=== PATIENT | female | born 1995 | race Two or more races ===

== ENCOUNTER → 2016-07-03 | Outpatient (CLI) | payer MEDICAID | LOC: FIMAGING 07:02 | PROVIDERS: ATTEND Physician Assistant | DX: Z34.92 Encounter for supervision of normal pregnancy, unspecified, second trimester (principal); Z3A.22 22 weeks gestation of pregnancy ==

== ENCOUNTER → 2016-09-11 | Outpatient (CLI) | payer MEDICAID | LOC: FIMAGING 07:47 | PROVIDERS: ATTEND Physician Assistant | DX: O36.5930 Maternal care for other known or suspected poor fetal growth, third trimester, not applicable or unspecified (principal); Z3A.32 32 weeks gestation of pregnancy ==

== ENCOUNTER → 2016-09-18 | Outpatient (CLI) | payer MEDICAID | LOC: FIMAGING 09:53 | PROVIDERS: ATTEND Physician Assistant | DX: O36.5931 Maternal care for other known or suspected poor fetal growth, third trimester, fetus 1 (principal); Z3A.33 33 weeks gestation of pregnancy ==

== ENCOUNTER → 2016-10-04 | Outpatient (CLI) | payer MEDICAID | LOC: FIMAGING 08:29 | PROVIDERS: ATTEND Physician Assistant | DX: O36.5931 Maternal care for other known or suspected poor fetal growth, third trimester, fetus 1 (principal); O41.03X1 Oligohydramnios, third trimester, fetus 1; Z3A.35 35 weeks gestation of pregnancy ==